=== PATIENT | female | born 1950 | race Two or more races ===

== ENCOUNTER 2018-12-10 07:10 | Day surgery (SDC) | payer OTHER | END 2018-12-10 13:25 | disposition home or self-care (01) | LOC: CIR.AMB 07:10 | DX: D12.4 Benign neoplasm of descending colon (principal); D12.5 Benign neoplasm of sigmoid colon; K64.8 Other hemorrhoids ==

== ENCOUNTER 2019-08-06 16:29 | Inpatient (IN) | payer OTHER ==
[~2019-08-06] VITALS: Ht 167.6 cm; Wt 74.4 kg
[2019-08-13] MEDS ORDERED: PLAVIX75 MG PO (13:56)
[2019-08-13] MEDS ORDERED: DILTIAZEM ER240 M3 PO (13:56)
[2019-08-13] MEDS ORDERED: JANUVIA100 MG PO (13:58)
[2019-08-13] MEDS ORDERED: JARDIANCE25 MG PO (13:58)
[2019-08-13] MEDS ORDERED: CARDESARTAN (13:58)
[2019-08-13] MEDS ORDERED: GLUCOPHAGE XR500 MG PO (13:59)
[2019-08-13] MEDS ORDERED: ATACAND32 MG PO (13:59)
[2019-08-25] MEDS ORDERED: OXYC1TAB9 PO (14:13)
[2019-08-25] MEDS ORDERED: Neurin-Sl Tablet Sl SL (14:14)
[2019-08-25] MEDS ORDERED: Vitamin B-6 PO (14:14)
[2019-08-25] MEDS ORDERED: INTEGRA F CAPS1 EACH PO (14:15)
[2019-08-25] MEDS ORDERED: INTESTINEX680 M1 PO (14:15)
== END 2019-08-25 15:55 | disposition home or self-care (01) | DRG 329 ==
LOC: SURG 08-21 06:57 → O/R 08-21 06:57 → SURG 08-21 09:15
PROVIDERS: ADMIT Surgery
PROC: 3E0F7GC Introduction of Other Therapeutic Substance into Respiratory Tract, Via Natural or Artificial Opening (ICD-10-PCS; 2019-08-21)
PROC: 4A12X4Z Monitoring of Cardiac Electrical Activity, External Approach (ICD-10-PCS; 2019-08-21)
PROC: 0DTN4ZZ Resection of Sigmoid Colon, Percutaneous Endoscopic Approach (ICD-10-PCS; principal; 2019-08-21 12:30)
DX: D12.5 Benign neoplasm of sigmoid colon (principal); K66.1 Hemoperitoneum; D12.2 Benign neoplasm of ascending colon; D12.4 Benign neoplasm of descending colon; D12.3 Benign neoplasm of transverse colon; J45.20 Mild intermittent asthma, uncomplicated; D64.89 Other specified anemias; G47.33 Obstructive sleep apnea (adult) (pediatric); E11.9 Type 2 diabetes mellitus without complications; I11.9 Hypertensive heart disease without heart failure

== ENCOUNTER 2019-10-29 14:06 | Emergency (ER) | payer OTHER ==
[~2019-10-29] VITALS: Ht 167.6 cm; Wt 69.9 kg
[~2019-10-29 14:06] MED LIST: ATACAND32 MG PO; CARDESARTAN; DILTIAZEM ER240 M3 PO; GLUCOPHAGE XR500 MG PO; INTEGRA F CAPS1 EACH PO; INTESTINEX680 M1 PO; JANUVIA100 MG PO; JARDIANCE25 MG PO; Neurin-Sl Tablet Sl SL; OXYC1TAB9 PO; PLAVIX75 MG PO; Vitamin B-6 PO
== END 2019-10-29 20:22 | disposition home or self-care (01) ==
LOC: ER 14:06
DX: K62.5 Hemorrhage of anus and rectum (principal)

== ENCOUNTER 2020-11-02 07:16 | Day surgery (SDC) | payer OTHER | END 2020-11-02 11:25 | disposition home or self-care (01) | LOC: AMB-ENDOS 07:16 | PROVIDERS: ATTEND Surgery | DX: K62.89 Other specified diseases of anus and rectum (principal); K64.8 Other hemorrhoids; Z20.828 Contact with and (suspected) exposure to other viral communicable diseases ==

== ENCOUNTER 2020-12-30 13:40 | Inpatient (IN) | payer OTHER ==
[~2020-12-30] VITALS: Ht 165.1 cm; Wt 63.5 kg
[2021-01-03] MEDS ORDERED: ROSUVASTATIN CA20 MG (13:58)
[2021-01-11] MEDS ORDERED: CHOLESTYRAMINE P4 GM PO (13:46)
[2021-01-11] MEDS ORDERED: VANCOMYCIN HCL1 GM PO (13:46)
[2021-01-11] MEDS ORDERED: INTESTINEX680 M1 PO (13:46)
== END 2021-01-11 14:52 | disposition home or self-care (01) | DRG 392 ==
LOC: ER 13:40 → SURH 12-31 09:08 → SEC-K 12-31 09:08 → SURH 12-31 15:42
PROVIDERS: ADMIT Surgery; ATTEND Surgery
PROC: BW2110Z Computerized Tomography (CT Scan) of Abdomen and Pelvis using Low Osmolar Contrast, Unenhanced and Enhanced (ICD-10-PCS; 2020-12-31)
PROC: 02HV33Z Insertion of Infusion Device into Superior Vena Cava, Percutaneous Approach (ICD-10-PCS; principal; 2021-01-01)
PROC: B24BYZZ Ultrasonography of Heart with Aorta using Other Contrast (ICD-10-PCS; 2021-01-04)
DX: K52.9 Noninfective gastroenteritis and colitis, unspecified (principal); A04.72 Enterocolitis due to Clostridium difficile, not specified as recurrent; E11.9 Type 2 diabetes mellitus without complications; I10 Essential (primary) hypertension; Z20.822 Contact with and (suspected) exposure to COVID-19